=== PATIENT | male | born 1990 | race Caucasian/White ===

== ENCOUNTER 2019-01-18 16:37 | Emergency (ER) | payer BC ==
[2019-01-18] MEDS: IBUPROFEN 600 MG TAB PO (18:34)
== END 2019-01-18 18:55 | disposition home or self-care (01) ==
LOC: FTE 18:55
DX: R07.89 Other chest pain (principal); R51 Headache
CPT/HCPCS: 71045; 80048; 84484; 85025; 93005; 99285-25